=== PATIENT | female | born 1965 | race Caucasian/White ===

== ENCOUNTER 2016-09-13 07:56 | Day surgery (SDC) | payer OTHER ==
[~2016-09-13] VITALS: Ht 177.8 cm; Wt 65.7 kg
[~2016-09-13 07:56] MED LIST: 0.9% Sodium Chloride 1,000 ML IV SCH; ALPR3TAB PO; DILT120T3 PO; MAGN500C4 PO; MULT-666 PO; OMEG-122 PO; Sodium Chloride LOK Flush 10 mL Syringe IV PRN; ZOLP5TAB2 SL; fentaNYL-PF 50 mCg/mL 2 mL Inj IVPUSH PRN
[2016-09-13 08:25] VITALS: BP 112/71; PULSE 74; RESP 14; O2SAT 100
[2016-09-13 09:12] VITALS: BP 109/75; PULSE 64; RESP 16; O2SAT 99
[2016-09-13 09:21] VITALS: BP 107/69; PULSE 62; RESP 16; O2SAT 99
[2016-09-13 09:22] VITALS: BP 114/76; PULSE 67; RESP 16; O2SAT 99
--- NOTE | 2016-09-13 09:34 | ENDO ---
[address] [address] ENDOSCOPY PROCEDURE PATIENT: JAN NARVAEZ : 1965 MR#: [id number] ADMIT: 09/13/2016 JOB ID: [id number] DATE: 09/13/2016 PRIMARY PROVIDER: Freddy Fermin MD PROCEDURE: Colonoscopy. INDICATIONS: A 51-year-old female who reports for colon cancer screening. EQUIPMENT: PCF H 180 AL. SEDATION: 1. 4 mg Versed. 2. 75 mcg fentanyl. COMPLICATIONS: None identified. BOWEL PREPARATION: Fair, adequate examination. PROCEDURAL INFORMATION: After the risks and benefits were explained, written and verbal informed consent was obtained. The patient was brought into the endoscopy suite and placed into the left lateral decubitus position. Sedation was achieved using the above-stated medications with the addition of oxygen via nasal cannula. A digital rectal examination was accomplished. No significant pathology appreciated. The scope was introduced into the rectum and advanced under direct visualization to the level of the cecum, as identified by the appendiceal orifice and ileocecal valve. The scope was slowly withdrawn to carefully examine the mucosa for any defects or lesions. Retroflexed views were avoided in the rectum. The colon was decompressed. The scope removed the patient who tolerated the procedure well. FINDINGS: No significant polyps, mass lesions or inflammatory features identified throughout. ENDOSCOPIC DIAGNOSES: Visually unremarkable colonoscopy to cecum. RECOMMENDATIONS: Repeat colonoscopy 10 years' time, sooner should symptoms warrant.
== END 2016-09-13 23:59 | disposition home or self-care (01) ==
LOC: END 07:56
PROVIDERS: ATTEND Internal Medicine Gastroenterology
PROC: 0DJD8ZZ Inspection of Lower Intestinal Tract, Via Natural or Artificial Opening Endoscopic (ICD-10-PCS; principal; 2016-09-13 08:45)
DX: Z12.11 Encounter for screening for malignant neoplasm of colon (principal)
CPT/HCPCS: 99153; G0121; G0500; J7030